=== PATIENT | female | born 1975 | race Caucasian/White ===

== ENCOUNTER 2016-09-07 13:28 | Emergency (ER) | payer OTHER ==
--- NOTE | 2016-09-07 16:42 | ED CLINICAL REPORT ---
Clinical Report - Physicians/Mid Levels [facility] [address] [place] [address] 09/07/2016 13:29 [id number] Time Seen: 13:56 Sep 07 2016. Arrived- By private vehicle. Historian- patient. Note: (36 weeks .). CPT: ER phys charges level 4 (#[id number]). HISTORY OF PRESENT ILLNESS Chief Complaint: VISUAL DISTURBANCE. This started today and is still present (She did not sustain an injury. ( Was watching TV and then began to have floaters in her eyes and her vision was blurry. Currently still having this problem. Denies EVERETT but states feels weak and fuzzy in the head. No other symptoms per pt. Has just recently gotten over a cold.). She has had watery ey). No weakness, numbness, tingling or impaired speech or swallowing. No recent fall. She has had visual disturbance. No difficulty walking. At its maximum deficit described as moderate. When seen in the E.D., it was almost gone. No dizziness, altered mental status, seizure or blackouts. Usually is alert and oriented X3 and has normal mobility. Similar symptoms previously: None. Recent medical care: Not recently seen/assessed. REVIEW OF SYSTEMS No fever, headache, head injury, chest pain or difficulty breathing. No cough, sputum production, sore throat, abdominal pain or nausea. No diarrhea, black stools, skin rash, enlarged lymph nodes or joint pain. No vomiting. All systems otherwise negative, except as recorded above. PAST HISTORY See nurses notes. Medications: Vitamins Oral. Allergies: Benadryl. SOCIAL HISTORY Never smoker. No alcohol use or drug use. ADDITIONAL NOTES The nursing notes have been reviewed. PHYSICAL EXAM Vital Signs: 09/07/2016 13:41 BP: 117/84. HR: 89. RR: 18. O2 saturation: 100%. Temp: 97.9 F. Appearance: Alert. No acute distress. Head: Head atraumatic. Rt Eye: Right eye exam normal. Eyes: Visual acuity normal bilaterally. Eyelids appear normal to inspection. Conjunctivae and sclerae appear normal to inspection. Corneas appear normal to inspection. Pupils equal, round and reactive to light and light. Accommodation normal. Funduscopic exam normal. EOMs intact. Periorbital areas appear normal to inspection. Anterior chambers clear. Anterior chambers of normal depth. Lt Eye: Left eye exam normal. ENT: Normal ENT inspection. Airway intact. Pharynx normal. Neck: Normal inspection. Neck supple. No meningeal signs or carotid bruit. CVS: Normal heart rate and rhythm. Heart sounds normal. Pulses normal. No cardiac murmur. Respiratory: No respiratory distress. Breath sounds normal. Abdomen: Soft and nontender. Back: Normal inspection. Skin: Skin warm. Normal skin color. No rash. Extremities: Extremities exhibit normal ROM. No lower extremity edema. Neuro: Alert. Oriented X 3. Mood/affect normal. Speech normal. Cranial nerves normal (as tested). No cerebellar findings. No motor deficit. No sensory deficit. Reflexes normal. LABS, X-RAYS, AND EKG Laboratory Tests: UA-Culture if indicated: (ANDRADE: 09/07/2016 14:00) ( [facility] 09/07/2016 14:15) Final results Test Result Flag Units (Reference) URINE COLOR YELLOW URINE APPEARANCE CLEAR URINE GLUCOSE NEGATIVE (NEGATIVE) URINE BILIRUBIN NEGATIVE (NEGATIVE) URINE KETONE TRACE (NEGATIVE) URINE SPECIFIC GRAVITY 1.015 (1.010-1.030) URINE PH 6.5 (5.0-8.0) URINE PROTEIN NEGATIVE (NEGATIVE) URINE UROBILINOGEN 0.2 EU/dL (0.2-1.0) URINE NITRITE NEGATIVE (NEGATIVE) URINE BLOOD NEGATIVE (NEGATIVE) URINE LEUK ESTERASE NEGATIVE (NEGATIVE) URINE RBC 0-1 rbc/hpf (0-1) URINE WBC 5-10 wbc/hpf (0-1) URINE EPITHELIAL CELLS 5-10 EPI/hpf (0-5) URINE BACTERIA MODERATE (2+ TO 3+) (NONE SEEN) URINE COMMENT CULTURE INDICATED URINE CULTURES ARE SET-UP BASED ON THE FOLLOWING CRITERIA:POSITIVE NITRITEPOSITIVE LEUKOCYTE ESTERASEGREATER THAN 10 WHITE BLOOD CELLSMODERATE (2+) OR GREATER BACTERIA CBC w Diff: (ANDRADE: 09/07/2016 14:12) ( [facility] 09/07/2016 14:25) Final results Test Result Flag Units (Reference) WHITE BLOOD COUNT 9.4 K/uL (4.5-11.5) RED BLOOD COUNT 3.47 L M/uL (4.00-5.20) HEMOGLOBIN 10.4 L gm/dL (12.0-16.0) HEMATOCRIT 30.5 L % (36.0-46.0) MEAN CELL VOLUME 88 fL (80-100) MEAN CORPUSCULAR HGB 30 pg (26-34) MEAN CORPUSCULAR HGB CONC 34 g/dL (31-37) RED CELL DISTRIBUTION WIDTH 12.7 % (11.6-14.8) PLATELET COUNT 200 K/uL (150-400) NEUTROPHIL % 64.0 % (50-75) LYMPH % 18.3 L % (25-40) MONO % 7.1 % (3-14) EOSINOPHIL % 10.0 H % (0-4) BASOPHIL % 0.6 % (0-2) PT with INR: (ANDRADE: 09/07/2016 14:12) ( [facility] 09/07/2016 14:32) Final results Test Result Flag Units (Reference) INR 1.1 (0.8-1.2) Low Intensity Therapy: INR 1.5-2.0 PT range 18.5-23.1Mod.Intensity Therapy: INR 2.0-3.0 PT range 23.1-31.5High Intensity Therapy: INR 2.5-3.5 PT range 27.4-35.5High Intensity Therapy 2: INR 3.0-4.0 PT range 31.5-39.3 APTT 25 SECONDS (24-34) CMP: (ANDRADE: 09/07/2016 14:12) ( [facility] 09/07/2016 14:40) Final results Test Result Flag Units (Reference) GLUCOSE 75 mg/dL (70-110) BUN 8 mg/dL (7-18) CREATININE 0.6 mg/dL (0.6-1.3) Estimated GFR >60 mL/min Estimated GFR- >60 mL/min Note: Persistent reduction over 3 months in eGFR<60 mL/min/1.73 m2 defines CKD. Patients with eGFR values>=60 mL/min/1.73 m2 may also have CKD if evidence ofpersistent proteinuria. Additional information may be foundat www.kidney.org. SODIUM 138 mmol/L (136-145) POTASSIUM 3.9 mmol/L (3.5-5.1) CHLORIDE 104 mmol/L (98-107) CARBON DIOXIDE 22 mmol/L (21-32) CALCIUM 8.6 mg/dL (8.5-10.1) TOTAL PROTEIN 7.0 g/dL (6.4-8.2) ALBUMIN 2.8 L g/dL (3.3-5.0) BILIRUBIN, TOTAL 0.4 mg/dL (0.0-1.0) ALKALINE PHOSPHATASE 141 H U/L (46-116) AST (SGOT) 19 U/L (15-37) ALT (SGPT) 17 U/L (12-78) Culture, Urine: (ANDRADE: 09/07/2016 14:00) ( MsgRcvd 09/09/2016 09:02) Final results Test Result Flag Units (Reference) CULTURE, URINE DATE: 09/09/16 PRELIM REPORT: FINAL REPORT PATIENT 34 WEEKS -- MXD QUANTITATIVE URINE GROWTH: GREATER THAN 100,000 CFU/mL ID AND SENS TO FOLLOW: NO FURTHER WORKUP -- GRBSTREP QUANTITATIVE URINE GROWTH: LESS THAN 10,000 CFU/mL . PROGRESS AND PROCEDURES Course of Care: Discussed with Dr. Escobedo. She is not concerned about the diagnosis of preeclampsia or HELP syndrome. Pt does not have hypertension. Patient/family counseled. Disposition: Discharged. Condition: stable. CLINICAL IMPRESSION Transient blurred vision 34 week . INSTRUCTIONS No strenuous activity. Rest. Drink plenty of fluids. Warnings: Further evaluation is necessary. GENERAL WARNINGS: Return or contact your physician immediately if your condition worsens or changes unexpectedly, if not improving as expected, or if other problems arise. Your Current Medications: CONTINUE TAKING THE FOLLOWING MEDICATIONS: Vitamins Oral. OTC Medications: Acetaminophen (available over the counter): take according to label instructions. Follow-up: Follow up with your doctor Friday in two days. Call for the next available appointment. Understanding of the discharge instructions verbalized by patient. Discharge instructions reviewed with and understanding was verbalized by spouse. (Electronically signed by Jacek Youngblood MD 09/10/2016 23:26) Addenda for JERO YADAV VisitID: [id number] Date: 09/07/2016 09/09/2016 15:26 Called pt and infomred her of culture results. RN called in a RX for Amoxacillian 500mg PO 1 tab every 8 hours #30 to [facility] by LAURO Hollis per pt request. Pt stated she will be seeing her PCP tomorrow and will tell them the news. (Electronically signed by Khalida Ramírez R.N. - 09/09/2016 15:26)
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
--- NOTE | 2016-09-07 16:42 | ED ORDER SUMMARY ---
..... Patient: JERO YADAV OrderSheet [facility] VisitID: [id number] [place] [address] 41y, F Registration Date/Time: 09/07/2016 ORDER SHEET Weight: 69.8 kg Allergies: Benadryl GENERAL ORDERS: UA-Culture if indicated Urgent (13:52 09/07/2016 EInderbitzen R.N. verbal order read back to Deangelo SPEARS) (Ack 13:55 Jennifer) (14:07 EInderbitzen R.N.) CBC w Diff Urgent (14:09/07/2016 Deangelo SPEARS) (Ack 14:19 Jennifer) (14:23 EInderbitzen R.N.) CMP Urgent (14:09/07/2016 Deangelo SPEARS) (Ack 14:19 Jennifer) (14:23 EInderbitzen R.N.) PT with INR Urgent (14:01 09/07/2016 Deangelo SPEARS) (Ack 14:19 Jennifer) (14:23 EInderbitzen R.N.) PTT Urgent (14:01 09/07/2016 Deangelo SPEARS) (Ack 14:19 Jennifer) (14:23 EInderbitzen R.N.) - (Q 1 hour BP) (16:13 09/07/2016 Deangelo SPEARS) (Ack 16:14 TBergley) (17:13 TBergley) (17:13 EInderbitzen R.N.) MEDICATION ORDERS: IV FLUIDS: IV Saline Lock (14:01 09/07/2016 Deangelo SPEARS) (14:18 EInderbitzen R.N.) ORDER SHEET NOTES: [Electronically signed by Vicki Hughes R.N. (17:14 09/07/2016)] [Electronically signed by Jacek Youngblood MD (23:26 09/10/2016)] [Electronically locked/signed by Vicki Hughes R.N. (17:14 09/07/2016)]
--- NOTE | 2016-09-07 16:42 | ED ORDER SUMMARY ---
..... Patient: JERO YADAV OrderSheet [facility] VisitID: [id number] [place] [address] 41y, F Registration Date/Time: 09/07/2016 ORDER SHEET Weight: 69.8 kg Allergies: Benadryl GENERAL ORDERS: UA-Culture if indicated Urgent (13:52 09/07/2016 EInderbitzen R.N. verbal order read back to Deangelo SPEARS) (Ack 13:55 Jennifer) (14:07 EInderbitzen R.N.) CBC w Diff Urgent (14:09/07/2016 Deangelo SPEARS) (Ack 14:19 Jennifer) (14:23 EInderbitzen R.N.) CMP Urgent (14:09/07/2016 Deangelo SPEARS) (Ack 14:19 Jennifer) (14:23 EInderbitzen R.N.) PT with INR Urgent (14:01 09/07/2016 Deangelo SPEARS) (Ack 14:19 Jennifer) (14:23 EInderbitzen R.N.) PTT Urgent (14:01 09/07/2016 Deangelo SPEARS) (Ack 14:19 Jennifer) (14:23 EInderbitzen R.N.) - (Q 1 hour BP) (16:13 09/07/2016 Deangelo SPEARS) (Ack 16:14 TBergley) (17:13 TBergley) (17:13 EInderbitzen R.N.) MEDICATION ORDERS: IV FLUIDS: IV Saline Lock (14:01 09/07/2016 Deangelo SPEARS) (14:18 EInderbitzen R.N.) ORDER SHEET NOTES: [Electronically signed by Vicki Hughes R.N. (17:14 09/07/2016)] [Electronically signed by Jacek Youngblood MD (23:26 09/10/2016)] [Electronically locked/signed by Vicki Hughes R.N. (17:14 09/07/2016)]
--- NOTE | 2016-09-07 16:42 | ED CLINICAL REPORT ---
Clinical Report - Physicians/Mid Levels [facility] [address] [place] [address] 09/07/2016 13:29 [id number] Time Seen: 13:56 Sep 07 2016. Arrived- By private vehicle. Historian- patient. Note: (36 weeks .). CPT: ER phys charges level 4 (#[id number]). HISTORY OF PRESENT ILLNESS Chief Complaint: VISUAL DISTURBANCE. This started today and is still present (She did not sustain an injury. ( Was watching TV and then began to have floaters in her eyes and her vision was blurry. Currently still having this problem. Denies [place] but states feels weak and fuzzy in the head. No other symptoms per pt. Has just recently gotten over a cold.). She has had watery ey). No weakness, numbness, tingling or impaired speech or swallowing. No recent fall. She has had visual disturbance. No difficulty walking. At its maximum deficit described as moderate. When seen in the E.D., it was almost gone. No dizziness, altered mental status, seizure or blackouts. Usually is alert and oriented X3 and has normal mobility. Similar symptoms previously: None. Recent medical care: Not recently seen/assessed. REVIEW OF SYSTEMS No fever, headache, head injury, chest pain or difficulty breathing. No cough, sputum production, sore throat, abdominal pain or nausea. No diarrhea, black stools, skin rash, enlarged lymph nodes or joint pain. No vomiting. All systems otherwise negative, except as recorded above. PAST HISTORY See nurses notes. Medications: Vitamins Oral. Allergies: Benadryl. SOCIAL HISTORY Never smoker. No alcohol use or drug use. ADDITIONAL NOTES The nursing notes have been reviewed. PHYSICAL EXAM Vital Signs: 09/07/2016 13:41 BP: 117/84. HR: 89. RR: 18. O2 saturation: 100%. Temp: 97.9 F. Appearance: Alert. No acute distress. Head: Head atraumatic. Rt Eye: Right eye exam normal. Eyes: Visual acuity normal bilaterally. Eyelids appear normal to inspection. Conjunctivae and sclerae appear normal to inspection. Corneas appear normal to inspection. Pupils equal, round and reactive to light and light. Accommodation normal. Funduscopic exam normal. EOMs intact. Periorbital areas appear normal to inspection. Anterior chambers clear. Anterior chambers of normal depth. Lt Eye: Left eye exam normal. ENT: Normal ENT inspection. Airway intact. Pharynx normal. Neck: Normal inspection. Neck supple. No meningeal signs or carotid bruit. CVS: Normal heart rate and rhythm. Heart sounds normal. Pulses normal. No cardiac murmur. Respiratory: No respiratory distress. Breath sounds normal. Abdomen: Soft and nontender. Back: Normal inspection. Skin: Skin warm. Normal skin color. No rash. Extremities: Extremities exhibit normal ROM. No lower extremity edema. Neuro: Alert. Oriented X 3. Mood/affect normal. Speech normal. Cranial nerves normal (as tested). No cerebellar findings. No motor deficit. No sensory deficit. Reflexes normal. LABS, X-RAYS, AND EKG Laboratory Tests: UA-Culture if indicated: (ANDRADE: 09/07/2016 14:00) ( [facility] 09/07/2016 14:15) Final results Test Result Flag Units (Reference) URINE COLOR YELLOW URINE APPEARANCE CLEAR URINE GLUCOSE NEGATIVE (NEGATIVE) URINE BILIRUBIN NEGATIVE (NEGATIVE) URINE KETONE TRACE (NEGATIVE) URINE SPECIFIC GRAVITY 1.015 (1.010-1.030) URINE PH 6.5 (5.0-8.0) URINE PROTEIN NEGATIVE (NEGATIVE) URINE UROBILINOGEN 0.2 EU/dL (0.2-1.0) URINE NITRITE NEGATIVE (NEGATIVE) URINE BLOOD NEGATIVE (NEGATIVE) URINE LEUK ESTERASE NEGATIVE (NEGATIVE) URINE RBC 0-1 rbc/hpf (0-1) URINE WBC 5-10 wbc/hpf (0-1) URINE EPITHELIAL CELLS 5-10 EPI/hpf (0-5) URINE BACTERIA MODERATE (2+ TO 3+) (NONE SEEN) URINE COMMENT CULTURE INDICATED URINE CULTURES ARE SET-UP BASED ON THE FOLLOWING CRITERIA:POSITIVE NITRITEPOSITIVE LEUKOCYTE ESTERASEGREATER THAN 10 WHITE BLOOD CELLSMODERATE (2+) OR GREATER BACTERIA CBC w Diff: (ANDRADE: 09/07/2016 14:12) ( [facility] 09/07/2016 14:25) Final results Test Result Flag Units (Reference) WHITE BLOOD COUNT 9.4 K/uL (4.5-11.5) RED BLOOD COUNT 3.47 L M/uL (4.00-5.20) HEMOGLOBIN 10.4 L gm/dL (12.0-16.0) HEMATOCRIT 30.5 L % (36.0-46.0) MEAN CELL VOLUME 88 fL (80-100) MEAN CORPUSCULAR HGB 30 pg (26-34) MEAN CORPUSCULAR HGB CONC 34 g/dL (31-37) RED CELL DISTRIBUTION WIDTH 12.7 % (11.6-14.8) PLATELET COUNT 200 K/uL (150-400) NEUTROPHIL % 64.0 % (50-75) LYMPH % 18.3 L % (25-40) MONO % 7.1 % (3-14) EOSINOPHIL % 10.0 H % (0-4) BASOPHIL % 0.6 % (0-2) PT with INR: (ANDRADE: 09/07/2016 14:12) ( [facility] 09/07/2016 14:32) Final results Test Result Flag Units (Reference) INR 1.1 (0.8-1.2) Low Intensity Therapy: INR 1.5-2.0 PT range 18.5-23.1Mod.Intensity Therapy: INR 2.0-3.0 PT range 23.1-31.5High Intensity Therapy: INR 2.5-3.5 PT range 27.4-35.5High Intensity Therapy 2: INR 3.0-4.0 PT range 31.5-39.3 APTT 25 SECONDS (24-34) CMP: (ANDRADE: 09/07/2016 14:12) ( [facility] 09/07/2016 14:40) Final results Test Result Flag Units (Reference) GLUCOSE 75 mg/dL (70-110) BUN 8 mg/dL (7-18) CREATININE 0.6 mg/dL (0.6-1.3) Estimated GFR >60 mL/min Estimated GFR- >60 mL/min Note: Persistent reduction over 3 months in eGFR<60 mL/min/1.73 m2 defines CKD. Patients with eGFR values>=60 mL/min/1.73 m2 may also have CKD if evidence ofpersistent proteinuria. Additional information may be foundat www.kidney.org. SODIUM 138 mmol/L (136-145) POTASSIUM 3.9 mmol/L (3.5-5.1) CHLORIDE 104 mmol/L (98-107) CARBON DIOXIDE 22 mmol/L (21-32) CALCIUM 8.6 mg/dL (8.5-10.1) TOTAL PROTEIN 7.0 g/dL (6.4-8.2) ALBUMIN 2.8 L g/dL (3.3-5.0) BILIRUBIN, TOTAL 0.4 mg/dL (0.0-1.0) ALKALINE PHOSPHATASE 141 H U/L (46-116) AST (SGOT) 19 U/L (15-37) ALT (SGPT) 17 U/L (12-78) Culture, Urine: (ANDRADE: 09/07/2016 14:00) ( MsgRcvd 09/09/2016 09:02) Final results Test Result Flag Units (Reference) CULTURE, URINE DATE: 09/09/16 PRELIM REPORT: FINAL REPORT PATIENT 34 WEEKS -- MXD QUANTITATIVE URINE GROWTH: GREATER THAN 100,000 CFU/mL ID AND SENS TO FOLLOW: NO FURTHER WORKUP -- GRBSTREP QUANTITATIVE URINE GROWTH: LESS THAN 10,000 CFU/mL . PROGRESS AND PROCEDURES Course of Care: Discussed with Dr. Escobedo. She is not concerned about the diagnosis of preeclampsia or HELP syndrome. Pt does not have hypertension. Patient/family counseled. Disposition: Discharged. Condition: stable. CLINICAL IMPRESSION Transient blurred vision 34 week . INSTRUCTIONS No strenuous activity. Rest. Drink plenty of fluids. Warnings: Further evaluation is necessary. GENERAL WARNINGS: Return or contact your physician immediately if your condition worsens or changes unexpectedly, if not improving as expected, or if other problems arise. Your Current Medications: CONTINUE TAKING THE FOLLOWING MEDICATIONS: Vitamins Oral. OTC Medications: Acetaminophen (available over the counter): take according to label instructions. Follow-up: Follow up with your doctor Friday in two days. Call for the next available appointment. Understanding of the discharge instructions verbalized by patient. Discharge instructions reviewed with and understanding was verbalized by spouse. (Electronically signed by Jacek Youngblood MD 09/10/2016 23:26) Addenda for JERO YADAV VisitID: [id number] Date: 09/07/2016 09/09/2016 15:26 Called pt and infomred her of culture results. RN called in a RX for Amoxacillian 500mg PO 1 tab every 8 hours #30 to [facility] by LAURO Hollis per pt request. Pt stated she will be seeing her PCP tomorrow and will tell them the news. (Electronically signed by Khalida Ramírez R.N. - 09/09/2016 15:26)
--- NOTE | 2016-09-10 23:26 | ED MAR SUMMARY ---
..... Medication Administration Record [facility] [address] [place], [place] [id number] Patient: MAURICIOGrady HAMILTON JERO Visit ID: [id number] 41y, F Weight: 69.8 kg Height/Length: 64 in BMI: 26.4 ALLERGIES: Benadryl
--- NOTE | 2016-09-10 23:26 | ED DISCHARGE INSTRUCTIONS ---
Patient: JERO YADAV General Instructions [facility] VisitID: [id number] [place] [address] 41y, F Registration Date/Time: 09/07/2016 Transient blurred vision 34 week . INSTRUCTIONS No strenuous activity. Rest. Drink plenty of fluids. Warnings: Further evaluation is necessary. GENERAL WARNINGS: Return or contact your physician immediately if your condition worsens or changes unexpectedly, if not improving as expected, or if other problems arise. Your Current Medications: CONTINUE TAKING THE FOLLOWING MEDICATIONS: Vitamins Oral. OTC Medications: Acetaminophen (available over the counter): take according to label instructions. Follow-up: Follow up with your doctor Friday in two days. Call for the next available appointment. Understanding of the discharge instructions verbalized by patient. Discharge instructions reviewed with and understanding was verbalized by spouse. No strenuous activity. Rest. (Electronically signed by Jacek Youngblood MD 09/10/2016 23:26)
--- NOTE | 2016-09-10 23:26 | ED MED RECONCILIATION SUMMARY ---
Patient: JERO YADAV Medication Reconciliation Report [facility] VisitID: [id number] [address] [place] [address] 41y, F Registration Date/Time: 09/07/2016 Weight: 69.8 kg Height/Length: 64 in. BMI: 26.4 ALLERGIES: Benadryl The patient's Home Medications are listed below: CONTINUE TAKING THE FOLLOWING MEDICATIONS: Vitamins Oral The source(s) of the original Home Medication information: Not obtained. The following Medications were given to the patient in the Emergency Department: None. The following Medications were prescribed to the patient: Acetaminophen (available over the counter): take according to label instructions. -- Jacek Youngblood MD
--- NOTE | 2016-09-10 23:26 | ED DISCHARGE INSTRUCTIONS ---
Patient: JERO YADAV General Instructions [facility] VisitID: [id number] [place] [address] 41y, F Registration Date/Time: 09/07/2016 Transient blurred vision 34 week . INSTRUCTIONS No strenuous activity. Rest. Drink plenty of fluids. Warnings: Further evaluation is necessary. GENERAL WARNINGS: Return or contact your physician immediately if your condition worsens or changes unexpectedly, if not improving as expected, or if other problems arise. Your Current Medications: CONTINUE TAKING THE FOLLOWING MEDICATIONS: Vitamins Oral. OTC Medications: Acetaminophen (available over the counter): take according to label instructions. Follow-up: Follow up with your doctor Friday in two days. Call for the next available appointment. Understanding of the discharge instructions verbalized by patient. Discharge instructions reviewed with and understanding was verbalized by spouse. No strenuous activity. Rest. (Electronically signed by Jacek Youngblood MD 09/10/2016 23:26)
--- NOTE | 2016-09-10 23:26 | ED MED RECONCILIATION SUMMARY ---
Patient: JERO YADAV Medication Reconciliation Report [facility] VisitID: [id number] [address] [place] [address] 41y, F Registration Date/Time: 09/07/2016 Weight: 69.8 kg Height/Length: 64 in. BMI: 26.4 ALLERGIES: Benadryl The patient's Home Medications are listed below: CONTINUE TAKING THE FOLLOWING MEDICATIONS: Vitamins Oral The source(s) of the original Home Medication information: Not obtained. The following Medications were given to the patient in the Emergency Department: None. The following Medications were prescribed to the patient: Acetaminophen (available over the counter): take according to label instructions. -- Jacek Youngblood MD
--- NOTE | 2016-09-10 23:26 | ED MAR SUMMARY ---
..... Medication Administration Record [facility] [address] [place], [place] [id number] Patient: MAURICIOGrady HAMILTON JERO Visit ID: [id number] 41y, F Weight: 69.8 kg Height/Length: 64 in BMI: 26.4 ALLERGIES: Benadryl
== END 2016-09-07 17:14 | disposition home or self-care (01) ==
LOC: ED SRH 13:28
DX: H53.8 Other visual disturbances (principal); O26.893 Other specified pregnancy related conditions, third trimester; Z3A.34 34 weeks gestation of pregnancy; Z88.8 Allergy status to other drugs, medicaments and biological substances
CPT/HCPCS: 90004; 90100; 90469; 90627; 94001; 94060; 95059

== ENCOUNTER 2016-10-28 17:16 | Emergency (ER) | payer OTHER ==
--- NOTE | 2016-10-28 17:40 | ED CLINICAL REPORT ---
Clinical Report - Physicians/Mid Levels [facility] [address] [place] [address] 10/28/2016 17:15 Patient: JERO YADAV Time Seen: 17:44 Oct 28 2016. Arrived- By private vehicle. Historian- patient. HISTORY OF PRESENT ILLNESS Chief Complaint: ABDOMINAL PAIN. It is described as "pain" and it is described as located in the lower abdomen. This started 2 weeksPTA and is still present. No vomiting. (5 weeks post op, reports pain to the right aspect of incision over last 2 weeks, some erythema developing, possibly some drainage to the left aspect. No fevers. No emesis, no diarrhea. Pain only at incision . Has been unable to see her OB, on vacation. Scheduled c section, no complications with surgery). REVIEW OF SYSTEMS No pain with urination, fever, chest pain or cough. All systems otherwise negative, except as recorded above. SOCIAL HISTORY No drug use. ADDITIONAL NOTES The nursing notes have been reviewed. PHYSICAL EXAM Vital Signs: 10/28/2016 17:32 BP: 116/73. HR: 82. RR: 16. O2 saturation: 99%. Temp: 98.5 F. Appearance: Alert. No apparent distress. Does not appear to be anxious. ENT: Nose normal. Pharynx normal. CVS: Normal heart rate and rhythm. Respiratory: No respiratory distress. Breath sounds normal. No decreased air movement. Abdomen: Soft. Tenderness (at lateral right side). (point tenderness to the area, no guarding, no peritoneal signs). Skin: Skin warm. (small lateral erythema about 1 cm at border of latearl right side, no drainage, no fluctulance). Neuro: Oriented X 3. PROGRESS AND PROCEDURES Course of Care: Patient afebrile normal cardiac, small area of seroma versus early infection, with no point functions, suspicion for acute abscess is low. Patient is normal cardiac. Patient to start warm compressions, as well as antibiotics and have close monitor of the area of infection. Denies history of MRSA. Patient is stable. Patient/family counseled. Disposition: Discharged. CLINICAL IMPRESSION Cellulitis (surgical site infeciton). Post-operative complication- cellulitis. No wound dehiscence present, infection present or retained foreign body present. INSTRUCTIONS Drink plenty of fluids. (warm packs to this area up to 10 x daily for 5-10 mins or shower follow up in 3-4 days with OB/ ER to ensure improvement). Prescription Medications: Cephalexin 500 mg: take 1 capsule orally every 12 hours for 10 days. No refill. OTC Medications: Take acetaminophen (Tylenol, Datril, etc.) and ibuprofen (Advil, Nuprin, etc.) according to label instructions. Available over the counter. (december alternate) (Electronically signed by Jana Torres P.A.-C 10/28/2016 17:48)
--- NOTE | 2016-10-28 17:40 | ED NURSING NOTES ---
Clinical Report - Nurses [facility] [address] [place] [place] [address] 10/28/2016 17:15 Patient: JERO YADAV TRIAGE Triage time 17:30. Acuity: LEVEL 3. Chief Complaint: ABDOMINAL PAIN. Alert. No acute distress. SEPSIS SCREEN: Sepsis Screen. Infection suspected/documented. Temperature not greater than 38.3 degrees C (101 degrees F). Heart rate not greater than 90. Respiratory rate not greater than 20. --17:38 Mason Duff R.N. 17:32 10/28/16. BP: 116/73. HR: 82. RR: 16. O2 saturation: 99% on room air. Temp: 98.5 F (oral). Pain level now 8/10. --17:38 Mason Duff R.N. Weight: 59.8 kg stated. Height/Length: 64 inches Per Patient. BMI: 22.6. --17:35 Mason Duff R.N. Medications Multivitamins Oral. --17:37 Mason Duff R.N. Ferrous Sulfate Oral. --17:37 Mason Duff R.N. ARIEL. --17:37 Mason Duff R.N. Allergies Benadryl. --17:38 Mason Duff R.N. Medication/allergy information source: the patient. --17:38 Mason Duff R.N. History Arrived by private vehicle. Historian: patient. Accompanied by family. ( abd pain x2-3 weeks. 5 weeks ago. redness to surgical incision.). Onset. (3 weeks ago). 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 PAST MEDICAL HX: Last normal menstrual period- 5 weeks . Denies current . SOCIAL HX: Never smoker. No alcohol use or drug use. FALL RISK ASSESSMENT: Fall risk assessment completed. No fall risk identified. NUTRITIONAL RISK ASSESSMENT: The nutritional risk assessment revealed no deficiencies. FUNCTIONAL ASSESSMENT: Functional assessment: no impairments noted. LEARNING NEEDS ASSESSMENT: The learning needs assessment revealed no barriers. SKIN INTEGRITY ASSESSMENT: Skin integrity risk assessment completed. No skin integrity risk identified. --17:38 Mason Duff R.N. PROBLEMS: Problems. OB History. Gallstone(s). . --17:38 Mason Duff R.N. ADDITIONAL SURGERIES: Cholecystectomy. . --17:38 Mason Duff R.N. Interventions ID band on patient. To treatment room. --17:38 Mason Duff R.N. PHYSICAL ASSESSMENT Ambulatory to room. GENERAL / NEURO / PSYCH: Alert. Oriented X 4. Appears in no acute distress. RESPIRATORY: Respirations not labored. CVS: Capillary refill less than 2 seconds. GI / : Abdomen soft. SKIN: ( healing surgical incision, redness to right side, tender to touch). --17:38 Mason Duff R.N. NURSING PROGRESS NOTES The plan of care for this patient has been created. Head of bed elevated. Call light placed in reach. Bed placed in lowest position. Brakes of bed on. --17:39 Mason Duff R.N. DISPOSITION / DISCHARGE 17:45 10/28/16. Departure time: 1743. Condition at departure: unchanged and stable. No learning barriers present. Discharge instructions provided and reviewed with the patient and spouse. Reviewed medication(s) side effects, precautions, dosing and course information. Prescription(s) given to the patient. Follow up contact number instructed to follow up with PCP in 2-3. Patient verbalized understanding. Written instructions provided in Indonesian. The patient was discharged by the physician commercial escrow assistant. She was discharged home and accompanied by spouse. She left the Emergency Department ambulatory and via private vehicle. Spouse driving. --17:45 Mason Duff R.N. Locked/Released at 10/30/2016 7:58 by Rima Rivas R.N.
--- NOTE | 2016-10-28 17:40 | ED CLINICAL REPORT ---
Clinical Report - Physicians/Mid Levels [facility] [address] [place] [address] 10/28/2016 17:15 Patient: JERO YADAV Time Seen: 17:44 Oct 28 2016. Arrived- By private vehicle. Historian- patient. HISTORY OF PRESENT ILLNESS Chief Complaint: ABDOMINAL PAIN. It is described as "pain" and it is described as located in the lower abdomen. This started 2 weeksPTA and is still present. No vomiting. (5 weeks post op, reports pain to the right aspect of incision over last 2 weeks, some erythema developing, possibly some drainage to the left aspect. No fevers. No emesis, no diarrhea. Pain only at incision . Has been unable to see her OB, on vacation. Scheduled c section, no complications with surgery). REVIEW OF SYSTEMS No pain with urination, fever, chest pain or cough. All systems otherwise negative, except as recorded above. SOCIAL HISTORY No drug use. ADDITIONAL NOTES The nursing notes have been reviewed. PHYSICAL EXAM Vital Signs: 10/28/2016 17:32 BP: 116/73. HR: 82. RR: 16. O2 saturation: 99%. Temp: 98.5 F. Appearance: Alert. No apparent distress. Does not appear to be anxious. ENT: Nose normal. Pharynx normal. CVS: Normal heart rate and rhythm. Respiratory: No respiratory distress. Breath sounds normal. No decreased air movement. Abdomen: Soft. Tenderness (at lateral right side). (point tenderness to the area, no guarding, no peritoneal signs). Skin: Skin warm. (small lateral erythema about 1 cm at border of latearl right side, no drainage, no fluctulance). Neuro: Oriented X 3. PROGRESS AND PROCEDURES Course of Care: Patient afebrile normal cardiac, small area of seroma versus early infection, with no point functions, suspicion for acute abscess is low. Patient is normal cardiac. Patient to start warm compressions, as well as antibiotics and have close monitor of the area of infection. Denies history of MRSA. Patient is stable. Patient/family counseled. Disposition: Discharged. CLINICAL IMPRESSION Cellulitis (surgical site infeciton). Post-operative complication- cellulitis. No wound dehiscence present, infection present or retained foreign body present. INSTRUCTIONS Drink plenty of fluids. (warm packs to this area up to 10 x daily for 5-10 mins or shower follow up in 3-4 days with OB/ ER to ensure improvement). Prescription Medications: Cephalexin 500 mg: take 1 capsule orally every 12 hours for 10 days. No refill. OTC Medications: Take acetaminophen (Tylenol, Datril, etc.) and ibuprofen (Advil, Nuprin, etc.) according to label instructions. Available over the counter. (december alternate) (Electronically signed by Jana Torres P.A.-C 10/28/2016 17:48)
--- NOTE | 2016-10-28 17:40 | ED NURSING NOTES ---
Clinical Report - Nurses [facility] [address] [place] [address] 10/28/2016 17:15 Patient: JERO YADAV TRIAGE Triage time 17:30. Acuity: LEVEL 3. Chief Complaint: ABDOMINAL PAIN. Alert. No acute distress. SEPSIS SCREEN: Sepsis Screen. Infection suspected/documented. Temperature not greater than 38.3 degrees C (101 degrees F). Heart rate not greater than 90. Respiratory rate not greater than 20. --17:38 Mason Duff R.N. 17:32 10/28/16. BP: 116/73. HR: 82. RR: 16. O2 saturation: 99% on room air. Temp: 98.5 F (oral). Pain level now 8/10. --17:38 Mason Duff R.N. Weight: 59.8 kg stated. Height/Length: 64 inches Per Patient. BMI: 22.6. --17:35 Mason Duff R.N. Medications Multivitamins Oral. --17:37 Mason Duff R.N. Ferrous Sulfate Oral. --17:37 Mason Duff R.N. ARIEL. --17:37 Mason Duff R.N. Allergies Benadryl. --17:38 Mason Duff R.N. Medication/allergy information source: the patient. --17:38 Mason Duff R.N. History Arrived by private vehicle. Historian: patient. Accompanied by family. ( abd pain x2-3 weeks. 5 weeks ago. redness to surgical incision.). Onset. (3 weeks ago). 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 PAST MEDICAL HX: Last normal menstrual period- 5 weeks . Denies current . SOCIAL HX: Never smoker. No alcohol use or drug use. FALL RISK ASSESSMENT: Fall risk assessment completed. No fall risk identified. NUTRITIONAL RISK ASSESSMENT: The nutritional risk assessment revealed no deficiencies. FUNCTIONAL ASSESSMENT: Functional assessment: no impairments noted. LEARNING NEEDS ASSESSMENT: The learning needs assessment revealed no barriers. SKIN INTEGRITY ASSESSMENT: Skin integrity risk assessment completed. No skin integrity risk identified. --17:38 Mason Duff R.N. PROBLEMS: Problems. OB History. Gallstone(s). . --17:38 Mason Duff R.N. ADDITIONAL SURGERIES: Cholecystectomy. . --17:38 Mason Duff R.N. Interventions ID band on patient. To treatment room. --17:38 Mason Duff R.N. PHYSICAL ASSESSMENT Ambulatory to room. GENERAL / NEURO / PSYCH: Alert. Oriented X 4. Appears in no acute distress. RESPIRATORY: Respirations not labored. CVS: Capillary refill less than 2 seconds. GI / : Abdomen soft. SKIN: ( healing surgical incision, redness to right side, tender to touch). --17:38 Mason Duff R.N. NURSING PROGRESS NOTES The plan of care for this patient has been created. Head of bed elevated. Call light placed in reach. Bed placed in lowest position. Brakes of bed on. --17:39 Mason Duff R.N. DISPOSITION / DISCHARGE 17:45 10/28/16. Departure time: 1743. Condition at departure: unchanged and stable. No learning barriers present. Discharge instructions provided and reviewed with the patient and spouse. Reviewed medication(s) side effects, precautions, dosing and course information. Prescription(s) given to the patient. Follow up contact number instructed to follow up with PCP in 2-3. Patient verbalized understanding. Written instructions provided in Setswana. The patient was discharged by the physician assistant field hockey coach. She was discharged home and accompanied by spouse. She left the Emergency Department ambulatory and via private vehicle. Spouse driving. --17:45 Mason Duff R.N. Locked/Released at 10/30/2016 7:58 by Rima Rivas R.N.
--- NOTE | 2016-10-30 07:58 | ED MED RECONCILIATION SUMMARY ---
Patient: MAURICIOGrady HAMILTONMICHELINEJERO Medication Reconciliation Report [facility] VisitID: [id number] [address] [place] [address] 41y, F Registration Date/Time: 10/28/2016 Weight: 59.8 kg Height/Length: 64 in. BMI: 22.6 ALLERGIES: Benadryl The patient's Home Medications are listed below: THE FOLLOWING MEDICATIONS NEED TO BE RECONCILED: ARIEL Ferrous Sulfate Oral Multivitamins Oral The source(s) of the original Home Medication information: patient The following Medications were given to the patient in the Emergency Department: None. The following Medications were prescribed to the patient: Take acetaminophen (Tylenol, Datril, etc.) and ibuprofen (Advil, Nuprin, etc.) according to label instructions. Available over the counter.(december) -- Jana Torres, P.A.-Kyle Cephalexin 500 mg: take 1 capsule orally every 12 hours for 10 days. No refill. -- Jana Torres, P.A.-C
--- NOTE | 2016-10-30 07:58 | ED DISCHARGE INSTRUCTIONS ---
Patient: JERO YADAV General Instructions [facility] VisitID: [id number] [place] [address] 41y, F Registration Date/Time: 10/28/2016 Cellulitis (surgical site infeciton). Post-operative complication- cellulitis. No wound dehiscence present, infection present or retained foreign body present. INSTRUCTIONS Drink plenty of fluids. (warm packs to this area up to 10 x daily for 5-10 mins or shower follow up in 3-4 days with OB/ ER to ensure improvement). Prescription Medications: Cephalexin 500 mg: take 1 capsule orally every 12 hours for 10 days. No refill. OTC Medications: Take acetaminophen (Tylenol, Datril, etc.) and ibuprofen (Advil, Nuprin, etc.) according to label instructions. Available over the counter. (may alternate) ADDITIONAL INFORMATION Cellulitis You have an infection of the skin known as cellulitis. This usually starts with a scrape, cut, insect bite, blister or other opening in the skin which becomes infected. This is a serious condition. It must be watched closely to be sure the infection is not spreading. With antibiotic treatment, the size of the red area will gradually shrink in size until the skin returns to normal. This will take 7-10 days. The red area should never increase in size once the antibiotic medicine has been started. Occasionally, an infection will be resistant to one antibiotic and another one will have to be used. Home Care: 1) Limit the use of the affected part, since excess movement can cause the infection to spread. 2) If the infection is on your leg, walk as little as possible during the first few days of the treatment. Keep your leg elevated while sitting. This will reduce swelling. 3) Take all of the antibiotic medicine exactly as directed until it is gone. Be careful not to miss any doses, especially during the first seven days. Follow Up with your doctor or this facility as directed. Check the infected area daily for the warning signs listed below. Get Prompt Medical Attention if any of the following occur: -- Spreading area of redness -- Increasing swelling or pain -- Appearance of pus or drainage -- Fever over 100.4 F (38.0 C) oral, or over 101.4 F (38.6 C) rectal, after two days on antibiotics Cephalexin Monohydrate Oral tablet What is this medicine? CEPHALEXIN (sef a AVIVA in) is a cephalosporin antibiotic. It is used to treat certain kinds of bacterial infections It will not work for colds, flu, or other viral infections. How should I use this medicine? Take this medicine by mouth with a full glass of water. Follow the directions on the prescription label. This medicine can be taken with or without food. Take your medicine at regular intervals. Do not take your medicine more often than directed. Take all of your medicine as directed even if you think you are better. Do not skip doses or stop your medicine early. Talk to your human resources consultant regarding the use of this medicine in children. While this drug may be prescribed for selected conditions, precautions do apply. What side effects may I notice from receiving this medicine? Side effects that you should report to your doctor or health personal care aide as soon as possible: allergic reactions like skin rash, itching or hives, swelling of the face, lips, or tongue breathing problems pain or trouble passing urine redness, blistering, peeling or loosening of the skin, including inside the mouth severe or watery diarrhea unusually weak or tired yellowing of the eyes, skin Side effects that usually do not require medical attention (report to your doctor or health personal care aide if they continue or are bothersome): gas or heartburn genital or anal irritation headache joint or muscle pain nausea, vomiting What may interact with this medicine? probenecid some other antibiotics What if I miss a dose? If you miss a dose, take it as soon as you can. If it is almost time for your next dose, take only that dose. Do not take double or extra doses. There should be at least 4 to 6 hours between doses. Where should I keep my medicine? Keep out of the reach of children. Store at room temperature between 59 and 86 degrees F (15 and 30 degrees C). Throw away any unused medicine after the expiration date. What should I tell my health care provider before I take this medicine? They need to know if you have any of these conditions: kidney disease stomach or intestine problems, especially colitis an unusual or allergic reaction to cephalexin, other cephalosporins, penicillins, other antibiotics, medicines, foods, dyes or preservatives or trying to get breast-feeding What should I watch for while using this medicine? Tell your doctor or health personal care aide if your symptoms do not begin to improve in a few days. Do not treat diarrhea with over the counter products. Contact your doctor if you have diarrhea that lasts more than 2 days or if it is severe and watery. If you have diabetes, you may get a false-positive result for sugar in your urine. Check with your doctor or health personal care aide. You have been given the following additional information: Cellulitis Cephalexin Monohydrate Oral tablet (Electronically signed by Jana Torres P.A.-C 10/28/2016 17:48)
--- NOTE | 2016-10-30 07:58 | ED DISCHARGE INSTRUCTIONS ---
Patient: JERO YADAV General Instructions [facility] VisitID: [id number] [place] [address] 41y, F Registration Date/Time: 10/28/2016 Cellulitis (surgical site infeciton). Post-operative complication- cellulitis. No wound dehiscence present, infection present or retained foreign body present. INSTRUCTIONS Drink plenty of fluids. (warm packs to this area up to 10 x daily for 5-10 mins or shower follow up in 3-4 days with OB/ ER to ensure improvement). Prescription Medications: Cephalexin 500 mg: take 1 capsule orally every 12 hours for 10 days. No refill. OTC Medications: Take acetaminophen (Tylenol, Datril, etc.) and ibuprofen (Advil, Nuprin, etc.) according to label instructions. Available over the counter. (may alternate) ADDITIONAL INFORMATION Cellulitis You have an infection of the skin known as cellulitis. This usually starts with a scrape, cut, insect bite, blister or other opening in the skin which becomes infected. This is a serious condition. It must be watched closely to be sure the infection is not spreading. With antibiotic treatment, the size of the red area will gradually shrink in size until the skin returns to normal. This will take 7-10 days. The red area should never increase in size once the antibiotic medicine has been started. Occasionally, an infection will be resistant to one antibiotic and another one will have to be used. Home Care: 1) Limit the use of the affected part, since excess movement can cause the infection to spread. 2) If the infection is on your leg, walk as little as possible during the first few days of the treatment. Keep your leg elevated while sitting. This will reduce swelling. 3) Take all of the antibiotic medicine exactly as directed until it is gone. Be careful not to miss any doses, especially during the first seven days. Follow Up with your doctor or this facility as directed. Check the infected area daily for the warning signs listed below. Get Prompt Medical Attention if any of the following occur: -- Spreading area of redness -- Increasing swelling or pain -- Appearance of pus or drainage -- Fever over 100.4 F (38.0 C) oral, or over 101.4 F (38.6 C) rectal, after two days on antibiotics Cephalexin Monohydrate Oral tablet What is this medicine? CEPHALEXIN (sef a AVIVA in) is a cephalosporin antibiotic. It is used to treat certain kinds of bacterial infections It will not work for colds, flu, or other viral infections. How should I use this medicine? Take this medicine by mouth with a full glass of water. Follow the directions on the prescription label. This medicine can be taken with or without food. Take your medicine at regular intervals. Do not take your medicine more often than directed. Take all of your medicine as directed even if you think you are better. Do not skip doses or stop your medicine early. Talk to your mold breaker regarding the use of this medicine in children. While this drug may be prescribed for selected conditions, precautions do apply. What side effects may I notice from receiving this medicine? Side effects that you should report to your doctor or health anesthesiologist and critical care as soon as possible: allergic reactions like skin rash, itching or hives, swelling of the face, lips, or tongue breathing problems pain or trouble passing urine redness, blistering, peeling or loosening of the skin, including inside the mouth severe or watery diarrhea unusually weak or tired yellowing of the eyes, skin Side effects that usually do not require medical attention (report to your doctor or health anesthesiologist and critical care if they continue or are bothersome): gas or heartburn genital or anal irritation headache joint or muscle pain nausea, vomiting What may interact with this medicine? probenecid some other antibiotics What if I miss a dose? If you miss a dose, take it as soon as you can. If it is almost time for your next dose, take only that dose. Do not take double or extra doses. There should be at least 4 to 6 hours between doses. Where should I keep my medicine? Keep out of the reach of children. Store at room temperature between 59 and 86 degrees F (15 and 30 degrees C). Throw away any unused medicine after the expiration date. What should I tell my health care provider before I take this medicine? They need to know if you have any of these conditions: kidney disease stomach or intestine problems, especially colitis an unusual or allergic reaction to cephalexin, other cephalosporins, penicillins, other antibiotics, medicines, foods, dyes or preservatives or trying to get breast-feeding What should I watch for while using this medicine? Tell your doctor or health anesthesiologist and critical care if your symptoms do not begin to improve in a few days. Do not treat diarrhea with over the counter products. Contact your doctor if you have diarrhea that lasts more than 2 days or if it is severe and watery. If you have diabetes, you may get a false-positive result for sugar in your urine. Check with your doctor or health anesthesiologist and critical care. You have been given the following additional information: Cellulitis Cephalexin Monohydrate Oral tablet (Electronically signed by Jana Torres P.A.-C 10/28/2016 17:48)
--- NOTE | 2016-10-30 07:58 | ED MED RECONCILIATION SUMMARY ---
Patient: MAURICIOGrady HAMILTONMICHELINEJERO Medication Reconciliation Report [facility] VisitID: [id number] [address] [place] [address] 41y, F Registration Date/Time: 10/28/2016 Weight: 59.8 kg Height/Length: 64 in. BMI: 22.6 ALLERGIES: Benadryl The patient's Home Medications are listed below: THE FOLLOWING MEDICATIONS NEED TO BE RECONCILED: ARIEL Ferrous Sulfate Oral Multivitamins Oral The source(s) of the original Home Medication information: patient The following Medications were given to the patient in the Emergency Department: None. The following Medications were prescribed to the patient: Take acetaminophen (Tylenol, Datril, etc.) and ibuprofen (Advil, Nuprin, etc.) according to label instructions. Available over the counter.(december) -- Jana Torres, P.A.-Kyle Cephalexin 500 mg: take 1 capsule orally every 12 hours for 10 days. No refill. -- Jana Torres, P.A.-C
--- NOTE | 2016-10-30 07:58 | ED MAR SUMMARY ---
..... Medication Administration Record [facility] [address] [place], [place] [id number] Patient: MAURICIOGrady HAMILTON JERO Visit ID: [id number] 41y, F Weight: 59.8 kg Height/Length: 64 in BMI: 22.6 ALLERGIES: Benadryl
--- NOTE | 2016-10-30 07:58 | ED MAR SUMMARY ---
..... Medication Administration Record [facility] [address] [place], [place] [id number] Patient: MAURICIOGrady HAMILTON JERO Visit ID: [id number] 41y, F Weight: 59.8 kg Height/Length: 64 in BMI: 22.6 ALLERGIES: Benadryl
== END 2016-10-28 17:43 | disposition home or self-care (01) ==
LOC: ED SRH 17:16
DX: O86.0 Infection of obstetric surgical wound (principal); L03.311 Cellulitis of abdominal wall; Z88.8 Allergy status to other drugs, medicaments and biological substances